=== PATIENT | male | born 1985 | race Caucasian/White ===

== ENCOUNTER 2019-04-16 23:39 | Emergency (ER) | payer SELFPAY ==
[2019-04-17] MEDS: ONDANSETRON 4 MG INJ IV (00:15)
[2019-04-17] MEDS: HYDROmorphONE 1 MG/ML SYG IV (00:15)
== END 2019-04-17 01:13 | disposition home or self-care (01) ==
LOC: E/R 23:39
DX: K40.90 Unilateral inguinal hernia, without obstruction or gangrene, not specified as recurrent (principal); F17.210 Nicotine dependence, cigarettes, uncomplicated
CPT/HCPCS: 96374; 96375; 99284-25

== ENCOUNTER 2019-07-01 15:29 | Inpatient (IN) | payer MEDICAID ==
[2019-07-01 16:02] LABS: ADD MAN DIFF? NO
[2019-07-01 16:04] LABS: BASOPHILS % 0.3 % (0.0-2.0); EOSINOPHILS # 0.1 10^3/ul (0.0-0.5); EOSINOPHILS % 0.7 % (0.0-7.0); HEMATOCRIT 46.8 % (42.0-52.0); HEMOGLOBIN 15.9 g/dl (14.0-18.0); LYMPHOCYTES # 1.5 10^3/ul (0.8-2.9); LYMPHOCYTES % 14.5 % (15.0-51.0); MEAN CORPUSCULAR HEMOGLOBIN 28.8 pg (29.0-33.0); MEAN CORPUSCULAR VOLUME 84.8 fl (82.0-101.0); MEAN PLATELET VOLUME 9.4 fl (7.4-10.4); MONOCYTE # 0.4 10^3/ul (0.3-0.9); NEUTROPHIL # 8.4 10^3/ul (1.6-7.5); NEUTROPHILS % 80.2 % (39.0-77.0); PLATELET COUNT 271 10^3/UL (140-415); RED BLOOD COUNT 5.52 10^6/ul (4.70-6.10); RED CELL DISTRIBUTION WIDTH 13.1 % (11.5-14.5)
[2019-07-01 16:04] LABS: WHITE BLOOD COUNT 10.4 10^3/ul (4.8-10.8)
[2019-07-01] MEDS: ONDANSETRON 4 MG INJ IV (16:06)
[2019-07-01] MEDS: HYDROmorphONE 1 MG/ML SYG IV (16:06)
[2019-07-01] MEDS: SOD CHLORIDE 0.9% 1,000 ML IV ×2 (16:07→21:44)
[2019-07-01 16:23] LABS: INR 0.89; PROTIME 12.2 Sec (11.9-14.9)
[2019-07-01 16:24] LABS: ANION GAP 13 (5-13); BLOOD UREA NITROGEN 19 mg/dl (7-20); CALCIUM 9.6 mg/dl (8.4-10.2); CARBON DIOXIDE 25 mmol/L (21-31); CHLORIDE 103 mmol/L (97-110); CREATININE 0.76 mg/dl (0.61-1.24); Estimated GFR > 60 mL/min (>60); GLUCOSE 117 mg/dl (70-220); PARTIAL THROMBOPLASTIN TIME 25.6 Sec (23.0-35.0); POTASSIUM 3.8 mmol/L (3.5-5.1); SODIUM 141 mmol/L (135-144)
[2019-07-01] MEDS ORDERED: ONDANSETRON 4 MG INJ IV ×3 (18:30→23:30)
[2019-07-01] MEDS ORDERED: ACETAMINOPHEN 325 MG TAB PO ×2 (18:30→19:30)
[2019-07-01] MEDS ORDERED: MAGNESIUM HYDROXIDE 30ML CUP PO (19:30)
[2019-07-01] MEDS ORDERED: NITROGLYCERIN (SL) 0.4 MG TAB SL (19:30)
[2019-07-01] MEDS ORDERED: hydrALAzine 20 MG INJ IV (19:30)
[2019-07-01] MEDS ORDERED: ALBUTEROL/IPRATROPIUM (NEB) 3 ML AMP HHN (19:30)
[2019-07-01] MEDS ORDERED: morphine 2 MG INJ IV ×2 (19:30→23:30)
[2019-07-01] MEDS ORDERED: DOCUSATE SODIUM 100 MG CAP PO (19:30)
[2019-07-01] MEDS ORDERED: LORAZEPAM 2 MG INJ IV (19:30)
[2019-07-01 19:54] LABS: FREE T4 (FREE THYROXINE) 1.18 ng/dl (0.79-2.35)
[2019-07-01] MEDS ORDERED: PROPOFOL 20 ML (21:42)
[2019-07-01] MEDS ORDERED: MIDAZOLAM 1 MG/ML 2 ML INJ (21:42)
[2019-07-01] MEDS ORDERED: SUCCINYLCHOLINE CHLORIDE 100 MG/5 ML SYG IV (21:42)
[2019-07-01] MEDS ORDERED: METOCLOPRAMIDE 10 MG INJ (21:43)
[2019-07-01] MEDS ORDERED: ONDANSETRON 4 MG INJ (22:01)
[2019-07-01] MEDS ORDERED: CEFAZOLIN 1 GM INJ (22:04)
[2019-07-01] MEDS: BUPIVACAINE 0.25%/EPI (SDV) 30 ML INJ (22:22)
[2019-07-01] MEDS ORDERED: ROCURONIUM 50 MG INJ (22:22)
[2019-07-01] MEDS ORDERED: ETOMIDATE 20 MG INJ (22:22)
[2019-07-01] MEDS: POLYMYXIN B 500000 UNIT INJ (22:51)
[2019-07-01] MEDS: BACITRACIN 50000 UNITS INJ (22:51)
[2019-07-01] MEDS ORDERED: ROPIVACAINE 0.5 % 30 ML VIAL (22:57)
[2019-07-01] MEDS ORDERED: GLYCOPYRROLATE 0.4 MG INJ (23:10)
[2019-07-01] MEDS ORDERED: NEOSTIGMINE 3 MG/3 ML SYRINGE (23:10)
[2019-07-01] MEDS ORDERED: KETOROLAC 30 MG INJ (23:26)
[2019-07-01] MEDS ORDERED: BETHANECHOL 25 MG TAB PO (23:30)
[2019-07-01] MEDS ORDERED: METOCLOPRAMIDE 10 MG INJ IV (23:30)
[2019-07-01] MEDS ORDERED: HYDROmorphONE 0.5 MG/0.5 ML SYG IV (23:30)
[2019-07-01] MEDS ORDERED: DIPHENHYDRAMINE 25 MG CAP PO (23:30)
[2019-07-01] MEDS ORDERED: KETOROLAC 30 MG INJ IV (23:30)
[2019-07-01] MEDS ORDERED: HYDROCODONE/APAP (5/325) TAB PO (23:30)
[2019-07-01] MEDS ORDERED: DIPHENHYDRAMINE 50 MG INJ IV (23:30)
[2019-07-02] MEDS: HEPARIN 5,000 UNIT/1 ML VIAL SC ×2 (01:01→09:56)
[2019-07-02] MEDS: CEFTRIAXONE 1 GM/50 ML (PMX) 50 ML IVPB (01:05)
[2019-07-02] MEDS: D5W-0.45 NACL + KCL 20 MEQ 1,000 ML IV ×2 (01:12→09:12)
[2019-07-02] MEDS: NACL 0.9% 3 ML SYG IV (01:13)
[2019-07-02] MEDS: LEVOFLOXACIN 750MG/D5W (PMX) 150 ML IVPB (02:21)
[2019-07-02 05:10] LABS: ADD MAN DIFF? NO
[2019-07-02 05:17] LABS: WHITE BLOOD COUNT 10.7 10^3/ul (4.8-10.8)
[2019-07-02 05:17] LABS: BASOPHILS % 0.3 % (0.0-2.0); EOSINOPHILS # 0.2 10^3/ul (0.0-0.5); EOSINOPHILS % 1.5 % (0.0-7.0); HEMATOCRIT 38.6 % (42.0-52.0); HEMOGLOBIN 13.2 g/dl (14.0-18.0); LYMPHOCYTES # 2.2 10^3/ul (0.8-2.9); LYMPHOCYTES % 20.5 % (15.0-51.0); MEAN CORPUSCULAR HEMOGLOBIN 29.6 pg (29.0-33.0); MEAN CORPUSCULAR HGB CONC 34.2 g/dl (32.0-37.0); MEAN CORPUSCULAR VOLUME 86.5 fl (82.0-101.0); MEAN PLATELET VOLUME 9.5 fl (7.4-10.4); MONOCYTE # 0.9 10^3/ul (0.3-0.9); MONOCYTES % 8.4 % (0.0-11.0); NEUTROPHIL # 7.4 10^3/ul (1.6-7.5); NEUTROPHILS % 68.9 % (39.0-77.0); PLATELET COUNT 226 10^3/UL (140-415); RED BLOOD COUNT 4.46 10^6/ul (4.70-6.10); RED CELL DISTRIBUTION WIDTH 13.2 % (11.5-14.5)
[2019-07-02] MEDS: SOD CHLORIDE 0.9% 1,000 ML IV (05:23)
[2019-07-02 05:58] LABS: ANION GAP 6 (5-13); BLOOD UREA NITROGEN 15 mg/dl (7-20); CALCIUM 8.4 mg/dl (8.4-10.2); CARBON DIOXIDE 29 mmol/L (21-31); CHLORIDE 103 mmol/L (97-110); CREATININE 0.75 mg/dl (0.61-1.24); Estimated GFR > 60 mL/min (>60); GLUCOSE 100 mg/dl (70-220); MAGNESIUM 1.7 mg/dl (1.7-2.5); PHOSPHORUS 4.2 mg/dl (2.5-4.9); SODIUM 138 mmol/L (135-144)
[2019-07-02 06:13] LABS: CHOL/HDL RATIO 3.7 RATIO; HDL CHOLESTEROL 32 mg/dl (28-63); LDL CHOLESTEROL,CALCULATED 78 mg/dl; TRIGLYCERIDES 43 mg/dl (0-149)
[2019-07-02 06:13] LABS: CHOLESTEROL 119 mg/dl (100-200)
[2019-07-02 08:48] LABS: HEMOGLOBIN A1C 5.2 % (0-5.9)
[2019-07-02] MEDS: HYDROCODONE/APAP (5/325) TAB PO (09:27)
== END 2019-07-02 14:10 | disposition home or self-care (01) | DRG 351 ==
LOC: E/R 15:29 → MS1 20:34
PROC: 0YU50JZ Supplement Right Inguinal Region with Synthetic Substitute, Open Approach (ICD-10-PCS; principal; 2019-07-01 21:00)
DX: K40.30 Unilateral inguinal hernia, with obstruction, without gangrene, not specified as recurrent (principal); E87.2 Acidosis; F17.200 Nicotine dependence, unspecified, uncomplicated; D64.9 Anemia, unspecified
CPT/HCPCS: 36415; 74176; 80048; 80061; 83036; 83605; 83735; 84100; 84439; 84443; 85025; 85610; 85730; 88302; 88304; 93005; 96374; 96375; 99285-25